=== PATIENT | female | born 1945 | race Caucasian/White ===

== ENCOUNTER 2018-05-07 11:00 | Emergency (ER) | payer MEDICARE, OTHER ==
[2018-05-07 11:09] VITALS: BP 120/63
--- NOTE | 2018-05-07 11:09 | ER Document Report ---
HPI - HPI Onset: Yesterday Onset/Duration: Sudden Pain Level: 4 Context: 73-year-old visiting the area from [place] stumbled [place] the beach and twisted her left ankle. It is swollen and bruised and she cannot walk on it. She also has bruising to her right mid to proximal tibia and she bit her lip causing a bruised lower lip. She takes one baby aspirin a day and metoprolol. No anticoagulants. Associated Symptoms: None Exacerbated by: Walking - Unable to bear weight on her left foot and ankle Relieved by: Denies Similar symptoms previously: No Recently seen / treated by doctor: No - ROS ROS below otherwise negative: Yes Systems Reviewed and Negative: Yes All other systems reviewed and negative Past Medical History - General Information source: Patient - Social History Smoking Status: Never Smoker Frequency of alcohol use: None Drug Abuse: None Lives with: Spouse/Significant other Family History: Reviewed & Not Pertinent - Medical History Notes: allergies Pulmonary Medical History: Reports: Hx COPD Other: Alpha-1 antitrypsin deficiency Past Surgical History: Reports: Hx Hysterectomy, Other - left breast benign lesion Vertical Provider Document - CONSTITUTIONAL Agree With Documented VS: Yes Exam Limitations: No Limitations - INFECTION CONTROL TRAVEL OUTSIDE OF THE [place] IN LAST 30 DAYS: No - MUSCULOSKELETAL/EXTREMETIES Musculoskeletal/Extremeties: Tender, Edema, Eccymosis - tender bruised swollen dorsal left foot, non tender malleoli. bruising med and proximal right tibia, non tender Notes: 2+ DP - NEURO Level of Consciousness: Alert Motor/Sensory: No Motor Deficit, No Sensory Deficit Course - Re-evaluation Re-evalutation: 05/07/18 11:49 Spiral fracture of the distal fourth left metatarsal. There is also a small fracture line in the base of the fifth metatarsal which I explained to them although it is not on the discharge instructions. I have given them a CD and the interpretation by the radiologist and they will follow-up in [place]. Plan to leave Tuesday so I did give them referral to a local orthopedist and boom stick man. 05/07/18 12:13 Procedures - Immobilization Left Foot Time completed: 12:15 Pre-Proc Neuro Vasc Exam: Normal Immobilizer type: Posterior ankle Performed by: PCT Post-Proc Neuro Vasc Exam: Normal Alignment checked and good: Yes Discharge - Discharge Clinical Impression: Spiral fx left fourth metatarsal, fx base 5th MT Condition: Good Disposition: HOME, SELF-CARE Instructions: Acetaminophen, Foot Fracture ([facility]), Ibuprofen (General) ([facility]), Splint Pending Casting ([facility]), Splint Precautions ([facility]) Additional Instructions: use walker non weight bearing tylenol up to 4000 mg per day motrin or advil keep the splint on see orthopedic or boom stick man when you get home to [facility] cd of the films given to you elevate Prescriptions: Walker [Folding Walker] 1 each ASDIR PRN #1 each PRN Reason: Referrals: LUCITA VÁSQUEZ MD [ACTIVE STAFF] - Follow up as needed IVY DENTON DPM [ACTIVE STAFF] - Follow up as needed LEODAN DOCKERY DPM [ACTIVE STAFF] - Follow up as needed
--- NOTE | 2018-05-07 12:00 | RADIOLOGY REPORT (SQ) ---
EXAM DESCRIPTION: FOOT LEFT COMPLETE COMPLETED DATE/TIME: 05/07/2018 11:33 am REASON FOR STUDY: injury COMPARISON: None. NUMBER OF VIEWS: Three views. TECHNIQUE: AP, lateral and oblique radiographic images acquired of the left foot. LIMITATIONS: None. FINDINGS: MINERALIZATION: Normal. BONES: Nondisplaced fracture base of right 5th metatarsal. Fracture of the shaft of the left 4th met atarsal with medial displacement of the distal fracture fragment. Marked degenerative change 1st met atarsal-phalangeal joint. JOINTS: No effusions. SOFT TISSUES: No soft tissue swelling. No foreign body. OTHER: No other significant finding. IMPRESSION: 1. Acute nondisplaced fracture base of 5th metatarsal. 2.Fracture of shaft of left 4th metatarsal with medial displacement distal fracture fragment. TECHNICAL DOCUMENTATION: JOB ID: [id number] 2010 [employer]- All Rights Reserved Reading location - IP/workstation name: [email or web address]
--- NOTE | 2018-05-07 12:16 | RADIOLOGY REPORT (SQ) ---
EXAM DESCRIPTION: ANKLE LEFT COMPLETE COMPLETED DATE/TIME: 05/07/2018 11:33 am REASON FOR STUDY: injury COMPARISON: None. NUMBER OF VIEWS: Three views. TECHNIQUE: AP, lateral, and oblique radiographic images acquired of the left ankle. LIMITATIONS: None. FINDINGS: MINERALIZATION: Normal. BONES: Nondisplaced fracture base of 5th metatarsal. Degenerative change talonavicular joint. Enthe sophyte for Achilles attachment. JOINTS: No effusions. SOFT TISSUES: No soft tissue swelling. No foreign body. OTHER: No other significant finding. IMPRESSION: Nondisplaced fracture base of 5th metatarsal. Degenerative change talonavicular joint. TECHNICAL DOCUMENTATION: JOB ID: [id number] 2010 [employer]- All Rights Reserved Reading location - IP/workstation name: [email or web address]
== END 2018-05-07 12:10 | disposition home or self-care (01) ==
LOC: ER 11:00
DX: S92.342A Displaced fracture of fourth metatarsal bone, left foot, initial encounter for closed fracture (principal); S92.355A Nondisplaced fracture of fifth metatarsal bone, left foot, initial encounter for closed fracture; S80.11XA Contusion of right lower leg, initial encounter; X50.0XXA Overexertion from strenuous movement or load, initial encounter; Y92.832 Beach as the place of occurrence of the external cause; S00.531A Contusion of lip, initial encounter; W50.3XXA Accidental bite by another person, initial encounter; Z79.899 Other long term (current) drug therapy; Z79.82 Long term (current) use of aspirin; J44.9 Chronic obstructive pulmonary disease, unspecified
CPT/HCPCS: 99283